=== PATIENT | female | born 1985 | race African-American/Black ===

== ENCOUNTER 2017-01-06 16:49 | Emergency (ER) | payer OTHER ==
[~2017-01-06] VITALS: Ht 180.3 cm; Wt 127.7 kg
[2017-01-06 16:56] VITALS: BP 122/75; PULSE 69; RESP 12; O2SAT 99
--- NOTE | 2017-01-06 17:41 | ED.REPORT ---
HPI-Dental/Mouth Prob Date of Service Jan 06, 2017 ED Provider: Libby Parsons History of Present Illness: 31-year-old female here for left upper second molar dental pain. She has been having issues with this tooth for 3-4 years and pain has been increasing in the last 2 months or so. In the last few days she has had it more pain with chewing, nausea and chills and sweats. No discharge noted from tooth. She saw her dentist 2 weeks ago and she has follow-up with son oral surgeon in [place] on January 17. She is taking OTC ibuprofen, Tylenol, and Aleve. She took 10 Aleve 10 Tylenol and 10 ibuprofen in the last 12 hours she states. 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 Nursing Notes Stated Complaint: SEVERE TOOTH ACHE Chief Complaint: Dental Nursing Notes Reviewed: Yes Allergies: Coded Allergies: No Known Allergies (Unverified , 01/06/17) Scheduled Penicillin V Potassium (Penicillin V Potassium) 500 Mg Tablet 500 MG PO QID Scheduled PRN Tramadol (Tramadol) 50 Mg Tablet 50 MG PO Q4H PRN PRN For Pain General Time Seen by MD: 17:22 Chief Complaint Tooth pain Hx Obtained From: Patient Arrived By: Walk-in Onset Occurred: Onset unknown Symptom Duration: Since onset Location: : Tooth upper L molar Radiation: : Does not radiate Severity: Current: Moderate Severity: Maximum: Severe Recent Healthcare: Recent doctor visit Similar Sx Previous: Yes Past Medical History Past Medical History Notes: denies Review of Systems Basic Review of Systems Hematologic: No bleeding, No bruising Neurologic: NL mental status, No weakness, No numbness Psychiatric: Normal thought content Constitutional: Reports: Chills, Fatigue, Denies: Fever Ears / Nose / Throat: Reports: Toothache Complete sys rev & neg: except as marked. Physical Exam Initial Vital Signs Vital Signs (First) Date Time Temp Pulse Resp B/P Pulse Ox O2 Delivery O2 Flow Rate FiO2 01/06/17 16:56 36.6 69 12 122/75 99 Initial VS: Reviewed, Vital signs normal General/Constitutional: Well-developed, Well-nourished Head / Eyes: Atraumatic, Normocephalic, PERRL Respiratory: Breath sounds normal, Clear to auscultation, No respiratory distress Cardiovascular: Regular rate & rhythm, Heart sounds normal, Intact distal pulses Skin: Warm, Dry, No cyanosis Neurologic: Alert, Oriented, Nonfocal Psychiatric: Mood/affect normal, Behavior normal, Normal thought content ENT: Atraumatic, Airway patent, Mucous membranes moist, Pharynx NL, No pooling of secretions, No trismus, No facial swelling mild tenderness to L upper gums around tooth in question. no erythema or swelling. Tooth is cracked and Tender General/Constitutional: Awake, Alert, Well appearing Respiratory / Chest: Breath sounds NL, Breath sounds = bilat, No respiratory distress, No rales, No rhonchi, No wheezing, No stridor Cardiovascular: Heart rate NL, Regular rhythm, Heart sounds NL, No murmurs, Peripheral circulation NL Discharge & Departure Primary Impression: Toothache Disposition: Home Discharge Condition All VS Reviewed: Yes Condition: Stable Patient Instructions: Dental Caries (ED) Additional Instructions: You may take 800 mg ibuprofen every 8 hours or 2 tabs of Aleve every 12 hour in conjunction with 1 g of Tylenol every 8 hours. Use tramadol or severe pain. Taken antibiotics as prescribed. Return if fevers, severe pain or worsening condition at all. Otherwise follow-up with your dentist as scheduled Referrals: [facility] (PCP) EDSupervising Provider for [facility]: Tristan Saha MD, Linnea K ARNP Jan 06, 2017 17:40
[2017-01-06] MEDS ORDERED: PENI500T PO (17:44)
[2017-01-06] MEDS ORDERED: TRAM50TA2 PO (17:44)
[2017-01-06 18:08] VITALS: BP 122/75; PULSE 69; RESP 12; O2SAT 99
== END 2017-01-06 18:10 | disposition home or self-care (01) ==
LOC: SED 16:49
DX: K08.89 Other specified disorders of teeth and supporting structures (principal)